=== PATIENT | female | born 1980 | race Caucasian/White ===

== ENCOUNTER → 2017-04-20 | Outpatient (CLI) | payer BC ==
[~2017-04-20] MED LIST: KAPIDEX60 MG PO; PRENATAL VITAMI1 TA5 PO
== END ==
LOC: MC.RAD 08:47
DX: R92.2 Inconclusive mammogram (principal); M95.4 Acquired deformity of chest and rib

== ENCOUNTER 2019-05-13 11:08 | Outpatient (CLI) | payer BC ==
[~2019-05-13] VITALS: Ht 165.1 cm; Wt 79.5 kg
--- NOTE | 2019-05-13 11:00 | NUR ---
Dr. Veliz called and notified this RN that patient is coming from office and would like an amniosure done to rule out SROM. 1115: Patient ambulatory with spouse to LR5, changed into gown, and FHR/TOCO monitors placed. Patient states she had what she thought fluid come out around 0200 this am and thought she smelled the amniotic fluid and then had another time with extra fluid. She was just as the office and Dr Veliz did the amnitrace papers and they were negative. She felt contractions but not as much now and no vaginal bleeding. 1135: Amniosure done and to lab and patient tolerates well. SVE-/3 1205: Dr. Veliz called with negative results and orders recieved to discharge home.
[2019-05-13 11:43] VITALS: BP 109/62; PULSE 67; TEMP 98.7
[2019-05-13] MEDS ORDERED: CLARITIN-D 10 M1 T24 PO (11:53)
[2019-05-13] MEDS ORDERED: PRENATAL PO (11:54)
[2019-05-13] MEDS ORDERED: NATURAL IRON65 MG (11:54)
[2019-05-13 12:05] VITALS: BP 109/62; PULSE 67; TEMP 98.7
== END 2019-05-13 12:20 | disposition home or self-care (01) ==
LOC: LDRO 11:08 → LDR 11:25 → LDRO 12:20
DX: O42.913 Preterm premature rupture of membranes, unspecified as to length of time between rupture and onset of labor, third trimester (principal); Z3A.36 36 weeks gestation of pregnancy
CPT/HCPCS: OP

== ENCOUNTER 2019-06-06 13:35 | Inpatient (IN) | payer BC ==
[2019-06-06] VITALS (20 sets, daily range): BP systolic 106–138; BP diastolic 51–73; PULSE 56–82; TEMP 97.8–98.8
[~2019-06-06] VITALS: Ht 165.1 cm; Wt 80.9 kg
[~2019-06-06 13:35] MED LIST changes: +CLARITIN-D 10 M1 T24 PO; +NATURAL IRON65 MG; +PRENATAL PO
--- NOTE | 2019-06-06 13:40 | NUR ---
Patient onto unit via wheelchair with at side for labor check. Patient oriented to room, changes into gown, plan of care discussed. EFMs on, VS taken. SVE 4/100/-2, BBOW noted. Patient reports contractions since last evening, worsening throughout the day today. Denies leaking of fluid or vaginal bleeding. Reports good movement. notified of patient on unit, orders received. Consents signed. Admission assessment completed. IV started to right hand, LR infusing per orders. Patient requesting epidural placement, will notify Hilary GUO.
--- NOTE | 2019-06-06 14:45 | NUR ---
1430: Hilary GUO at bedside. 1435: Patient sitting up for epidural placement. 1438: Lidocaine. 1442: Epidural Catheter. 1443: Test Dose given by Hilary GUO, no adverse reactions noted. 1450: Patient repositioned to left tilt.
[2019-06-06 14:48] LABS: BASO % 0.3 % (0.0-2.0); EOS % 0.3 % (0-4.0); GRAN # 9.3 (1.4-6.5); GRAN % 80.2 % (42.2-75.2); HEMATOCRIT 36.5 % (37.0-47.0); HEMOGLOBIN 12.4 g/dl (12.5-16.0); LYMPH # 1.4 (1.2-3.4); LYMPH % 11.7 % (20.0-51.0); MEAN CELL VOLUME 95 fl (80.0-100.0); MEAN CORPUSCULAR HEMOGLOBIN 32 pg (27.0-31.0); MEAN CORPUSCULAR HGB CONC 34 g/dl (33.0-37.0); MEAN PLATELET VOLUME 11.3 fl (7.4-10.4); MONO # 0.7 (0.1-0.6); PLATELET COUNT 108 K/mm3 (130-400); RED BLOOD COUNT 3.84 M/mm3 (4.10-5.30)
--- NOTE | 2019-06-06 15:00 | NUR ---
Roles to bedside to discuss plan of care with patient. AROM at 1501, moderate amount of clear fluid noted with exam. SVE 6-7/100/-1. Questions answered. Call light within reach.
--- NOTE | 2019-06-06 15:20 | NUR ---
Patient calls out reporting increased rectal pressure and urge to push. SVE 8-9/100/+1, bloody show noted. Patient pushes epidural button. Will notify .
--- NOTE | 2019-06-06 15:50 | NUR ---
Straight catheter used to drain 200ml clear yellow urine from bladder.
--- NOTE | 2019-06-06 17:05 | NUR ---
1600: at bedside. SVE Complete/+2. Colin RN notified. 1610: Initial push. and this RN remain at bedside during pushing. 165: Spontaneous vaginal delivery of viable female assisted by . Infant care assumed by Colin RN at this time. 1653: Spontaneous vaginal delivery of placenta assisted by . Fundus firm, scant lochia noted. Pitocin infusing at 333ml/hr. Repair completed by using 2-[address]-1. Red shanita catheter used to drain bladder. 170: Recovery started. Fundus firm, lochia WNL.
--- NOTE | 2019-06-06 18:20 | NUR ---
Report to Celio HAGAN to assume care of patient at this time.
--- NOTE | 2019-06-06 19:20 | NUR ---
1919 IV TO INT. EPID CATH REMOVED. UP TO BR WITH ASSIST. UNABLE TO VOID. BECAME LIGHTHEADED. TO W/C AND TO 215. PEDRO LUIS WELL.
[2019-06-07 01:00] VITALS: BP 111/62; PULSE 71; TEMP 97.6
[2019-06-07 05:00] VITALS: BP 114/85; PULSE 84; TEMP 98.3
[2019-06-07] MEDS ORDERED: IBU600 MG PO (08:55)
[2019-06-07] MEDS ORDERED: PERCOCET 325 MG1 TA2 PO (08:55)
[2019-06-07 09:00] VITALS: BP 106/68; PULSE 96; TEMP 98
--- NOTE | 2019-06-07 09:51 | NUR ---
Initial visit attempt; Family resting, [employer] Education [employer] Teacher left card of congratulations for the of their daughter and information regarding the availability of spiritual care at [facility].
[2019-06-07 17:02] VITALS: BP 111/60; PULSE 74; TEMP 97.9
[2019-06-07 21:00] VITALS: BP 93/79; PULSE 71; TEMP 98.4
[2019-06-08 07:10] VITALS: BP 109/56; PULSE 76; TEMP 98.2
== END 2019-06-08 10:10 | disposition home or self-care (01) | DRG 807 ==
LOC: LDRO 13:35 → LDR 13:53 → OB 19:30
PROVIDERS: ADMIT Obstetrics & Gynecology
PROC: 10E0XZZ Delivery of Products of Conception, External Approach (ICD-10-PCS; principal; 2019-06-06)
PROC: 0UQMXZZ Repair Vulva, External Approach (ICD-10-PCS; 2019-06-06)
DX: O26.893 Other specified pregnancy related conditions, third trimester (principal); Z37.0 Single live birth; Z67.91 Unspecified blood type, Rh negative; O70.0 First degree perineal laceration during delivery; Z3A.39 39 weeks gestation of pregnancy
CPT/HCPCS: J2590; J7120

== ENCOUNTER → 2022-01-12 | Outpatient (CLI) | payer OTHER ==
[~2022-01-12] MED LIST changes: +IBU600 MG PO; +PERCOCET 325 MG1 TA2 PO
== END ==
LOC: MC.RAD 07:41
DX: Z12.31 Encounter for screening mammogram for malignant neoplasm of breast (principal)